=== PATIENT | male | born 1950 | race Caucasian/White ===

== ENCOUNTER → 2017-04-25 | Outpatient (CLI) | payer MEDICARE, BC ==
[~2017-04-25] MED LIST: HYDR-3111 PO; HYDR-3533 PO; HYDR-4107 PO; LOSA25TA PO; TESTOSTERONE GEL TOP; TIZA4 PO; VICT18IN SQ; VITA1000 PO; ZANA4CAP PO; testosterone cream TOPICAL
--- NOTE | 2017-04-25 09:55 | RADRPT ---
EXAM DATE/TIME: 04/25/2017 09:46 [facility] COMPARISON: No previous studies available for comparison. INDICATIONS : Pre op lumbar surgery. Evaluate for pneumothorax, pneumonia, or communicable diseases. MEDICAL HISTORY : None. SURGICAL HISTORY : None. ENCOUNTER: Initial ACUITY: 1 day PAIN SCORE: 0/10 LOCATION: Bilateral chest FINDINGS: PA and lateral views of the chest demonstrate the lungs to be symmetrically aerated without evidence of mass, infiltrate or effusion. The cardiomediastinal contours are unremarkable. Osseous structure s are intact. CONCLUSION: No acute disease. Jamshid Frausto MD on April 25, 2017 at 9:52 Board Certified Radiologist. This report was verified electronically.
[2017-04-25 10:01] LABS: AUTOMATED NEUTROPHIL # 4.5 TH/MM3 (1.8-7.7); BASOPHIL % 0.2 % (0.0-2.0); EOSINOPHIL # 0.1 TH/MM3 (0-0.4); EOSINOPHIL % 1.5 % (0.0-4.0); HEMATOCRIT 50.2 % (39.0-51.0); HEMOGLOBIN 16.9 GM/DL (13.0-17.0); LYMPH % 20.3 % (9.0-44.0); LYMPHOCYTE # 1.3 TH/MM3 (1.0-4.8); MEAN CELL VOLUME 91.1 FL (80.0-100.0); MEAN CORPUSCULAR HEMOGLOBIN 30.7 PG (27.0-34.0); MEAN CORPUSCULAR HGB CONC 33.7 % (32.0-36.0); MONO % 7.5 % (0.0-8.0); MONOCYTE # 0.5 TH/MM3 (0-0.9); NEUT % 70.5 % (16.0-70.0); PLATELET COUNT 181 TH/MM3 (150-450); RED BLOOD COUNT 5.51 MIL/MM3 (4.50-5.90); RED CELL DISTRIBUTION WIDTH 13.5 % (11.6-17.2); WHITE BLOOD COUNT 6.4 TH/MM3 (4.0-11.0)
[2017-04-25 10:25] LABS: ALBUMIN 4.1 GM/DL (3.4-5.0); AST (GOT) 23 U/L (15-37); BICARBONATE 29.5 MEQ/L (21.0-32.0); BLOOD UREA NITROGEN 22 MG/DL (7-18); CALCIUM 9.7 MG/DL (8.5-10.1); CHLORIDE 104 MEQ/L (98-107); CREATININE 1.58 MG/DL (0.60-1.30); GLOMERULAR FILTRATION RATE 44 ML/MIN (>89); GLUCOSE,FASTING 93 MG/DL (74-99); SODIUM (NA) 139 MEQ/L (136-145)
[2017-04-25 10:26] LABS: BILIRUBIN, URINE NEG (NEG); BLOOD, URINE LARGE (NEG); GLUCOSE,URINE NEG (NEG); KETONE, URINE NEG (NEG); MUCUS URINE FEW /lpf (OCC); NITRITE,URINE NEG (NEG); URIC ACID CRYSTALS, URINE FEW /hpf; URINE COLOR YELLOW (YELLW/STRAW); URINE LEUKOCYTE ESTERASE NEG (NEG)
[2017-04-25 10:27] LABS: ALT (GPT) 49 U/L (12-78)
[2017-04-25 10:28] LABS: ALKALINE PHOSPHATASE 59 U/L (45-117); TOTAL BILIRUBIN ADULT 0.4 MG/DL (0.2-1.0)
--- NOTE | 2017-04-25 12:23 | EKG ---
Date Performed: 04/25/2017 Time Performed: 09:20:56 PTAGE: 67 years EKG: Sinus rhythm . Possible inferior infarct - age undetermined Abnormal ECG PREVIOUS TRACING : 01/15/2013 11.15 Since the prior tracing, there has been no significant burciaga DOCTOR: Stephen Lucio Interpretating Date/Time 04/25/2017 12:22:30
== END ==
LOC: CPRE 08:58
PROVIDERS: ATTEND Neurological Surgery
DX: Z01.810 Encounter for preprocedural cardiovascular examination (principal); Z01.811 Encounter for preprocedural respiratory examination; Z01.812 Encounter for preprocedural laboratory examination; Z01.818 Encounter for other preprocedural examination; M51.36 Other intervertebral disc degeneration, lumbar region; R94.31 Abnormal electrocardiogram [ECG] [EKG]
CPT/HCPCS: 36415; 71046; 80053; 81001; 85025; 85610; 85730; 87640; 87641; 93005

== ENCOUNTER 2017-05-02 06:29 | Inpatient (IN) | payer MEDICARE, BC ==
[~2017-05-02] VITALS: Ht 180.3 cm; Wt 104.8 kg
[~2017-05-02 06:29] MED LIST changes: -HYDR-3533 PO; -HYDR-4107 PO; -TESTOSTERONE GEL TOP; -TIZA4 PO; -VICT18IN SQ; -testosterone cream TOPICAL
[2017-05-02] MEDS ORDERED: VANCOMYCIN HCL 1000 MG VIAL ONE (07:01)
[2017-05-02] MEDS ORDERED: THROMBIN (TOPICAL) 5,000 UNIT VIAL ONE (07:02)
[2017-05-02] MEDS ORDERED: BUPIVACAINE/EPINEPHRINE 0.5% PF 30 ML VIAL ONE (07:02)
[2017-05-02] MEDS ORDERED: ceFAZolin 2 GM PREMIX 50 ML ONE (07:02)
[2017-05-02] MEDS ORDERED: GELFOAM SIZE 100 ONE (07:02)
[2017-05-02] MEDS ORDERED: GENTAMICIN SULFATE 80 MG/2 ML VIAL ONE (07:03)
[2017-05-02] MEDS ORDERED: VANCOMYCIN 1 GM/200 ML INJ 200 ML IV ONE (07:27)
[2017-05-02] MEDS ORDERED: testosterone cream TOPICAL (07:27)
[2017-05-02] MEDS ORDERED: VICT18IN SQ (07:27)
[2017-05-02] MEDS: CHLORHEXIDINE GLUCONATE 2 % 1 PACK (2 CLOTHS) TOPICAL SCH (07:30)
[2017-05-02] MEDS ORDERED: POVIDONE IODINE 5% (ANTISEPSIS KIT) 4 APPLICATIONS EACH NARE PRN (07:30)
[2017-05-02] MEDS ORDERED: LACTATED RINGER'S 1000 ML IV PRN (07:30)
[2017-05-02] MEDS ORDERED: VANCOMYCIN 1000 MG/NS 250 ML ON-CALL IV SCH ×2 (07:30)
[2017-05-02] MEDS ORDERED: SODIUM CHLORID 0.9% 500 ML IV PRN (07:30)
[2017-05-02] MEDS ORDERED: CHLORHEXIDINE GLUCONATE 2 % 1 PACK (2 CLOTHS) TOPICAL PRN (07:30)
[2017-05-02] MEDS ORDERED: METOPROLOL TARTRATE 25 MG TAB PO PRN (07:30)
[2017-05-02] MEDS ORDERED: VANCOMYCIN 1 GM/200 ML PREMIX ON-CALL IV SCH (08:00)
[2017-05-02] MEDS ORDERED: ACETAMINOPHEN 325 MG TAB PO PRN (09:45)
[2017-05-02] MEDS ORDERED: NALOXONE HCL 0.4 MG/ML AMP IV PUSH PRN (09:45)
[2017-05-02] MEDS ORDERED: diphenhydrAMINE HCL 50 MG/ML VIAL IV PUSH PRN (09:45)
[2017-05-02] MEDS ORDERED: MORPHINE SULFATE 4 MG/ML INJ IV PUSH PRN (09:45)
[2017-05-02] MEDS ORDERED: ceFAZolin 2 GM PREMIX 50 ML IV ONE (10:49)
[2017-05-02] MEDS ORDERED: PROPOFOL 500 MG/50 ML INJ 150 ML ONE (11:08)
[2017-05-02] MEDS ORDERED: ARTIFICIAL TEARS OPTH OINT 3.5 APPLIC/3.5 GM TUBO ONE (11:08)
[2017-05-02] MEDS ORDERED: HYDROmorphone HCL PF 2 MG/ML VIAL ONE ×2 (11:08→14:09)
[2017-05-02] MEDS ORDERED: MORPHINE SULFATE 2 MG/ML INJ IV PUSH PRN (12:00)
--- NOTE | 2017-05-02 13:16 | PD.OP ---
Operative Report Date of Surgery: May 02, 2017 Preoperative Diagnosis: Lumbar degenerative disk disease Postoperative Diagnosis: Lumbar degenerative disk disease Procedure: L4-L5 minimally invasive lumbar laminectomy, interbody arthrodhesis using PEEK cage and autologous bone graft, L4-L5 instrumental fixation using transpedicular screws and rods, L4-L5 posterolateral fusion using autologous bone graft and demineralized bone matrix. Microsurgical dissection Anesthesia: general Surgeon: Laurent Coles Ticker Installer(s): Julieta Rivera Operation and Findings: INDICATIONS FOR THE SURGICAL PROCEDURE Mr. Prince is a 67 year-old male who presented with intractable mechanical back pain and ary evidence of lower extremity L5 radiculopathy. He was found to have severe degenerative disk disease with loss of disk height and secondary stenosis. He failed maximum nonoperative treatment. A surgical decompression and arthrodhesis were indicated as a last resort. The step-by- step details of the procedure, indications, alternatives, risks and potential complications were fully discussed with the patient. The patient fully understood. All the questions were answered. No guarantees were given. The patient voiced requesting the procedure and provided informed consents. The patient was offered the alternative of delaying the procedure and continuing with nonsurgical management. DETAILS OF THE SURGICAL PROCEDURE Prior to the procedure, the surgical incision was marked in the preoperative surgical holding room, and any questions were answered. Placement of electrodes for intraoperative neurophysiological monitoring was completed. The patient was taken to the operative room, and following induction of general anesthesia, endotracheal intubation was performed. A Canela catheter, bilateral SHABBIR hose and sequential compression devices were placed and kept throughout the procedure. The patient was positioned prone, over a Suresh table over a bolsters. All pressure in the preoperative surgical holding room points were carefully padded with eggcrate and gel mattress. The eyes were tapped shut after ointment was applied by the anesthesiologist to prevent corneal abrasion. A Saravanan hugger was placed over the expossed lower body to maintain control of the core body temperature. The electrophysiological team placed the needles and electrodes in their proper location and baseline SSEP's and EMG potentials were registered. The entrance to each pedicles was marked using a C arm. The lumbar region was prepped and draped in the usual sterile fashion. The surgical procedure was performed in several steps as follow: SURGICAL APPROACH Once the patient was positioned, a localizing cross-table lateral x-ray was performed with a C-arm. Two paramedian small incisions were outlined on the skin approximately 3cm from the midline. The skin incisions were made with a # 10 blade. Small bleeders were controlled with the cautery. The dissection was then carried out into deper planes and through the thoracolumbar fascia with a Bovie. The intermuscular septum was identified and the muscles were blunted dissected along the septum. The facets and transverse process of L4 and L5 were exposed and the proper anatomical landmarks were identidied. A microsurgical self-retaining retractor was placed on the incision, and a localizing lateralizing cross-table x-ray was performed with an instrument underneath a lamina of L4. INSTRUMENTAL FIXATION At this point in the procedure, placement of bilateral transpedicular screws was necessary for stabilization of the spine. Initially, the entry point for the screw was selected anatomically at the junction of the facet, with the transverse process, and the pars interarticularis at L4 and L5. This was started with a Giamshetti needle followed by the use of a locke wire. A tap was used to create the threads for the screws. Finally bilateral transpedicular screws were carefully placed bilaterally at L4, and L5 under fluoroscopic visualization. An appropriate purchase was achieved with all screws. The position of each screw was assessed anatomically with an AP, lateral , oblique Xrays. An intraoperative scan view of the spine was then performed using the iso-centric c-arm. Each screw was then assessed electrophysiologically stimulating each screw with a nerve stimulator. SURGICAL DECOMPRESSION At this point of the procedure the operative microscope was draped in the usual sterile fashion and brought to the field. The rest of the surgical procedure was performed using microdissection technique with the exception of the closure. Under the operating microscope, a decompressive laminectomy was carried out at L4-L5 as follow: The laminae, base of the spinous processes and facets were carefully drilled exposing the ligamentum flavum. The facets were abnormal with severe spondylolisthesis and gross mechanical instability. A large disk protusion was compressing the neural structures and exiting nerve roots. A near complete facetectomy was necessary resulting in further mechanical instability. The ligamentum flavum appeared hypertrophic, resulting on mass effect on the dorsal surface of the neural structures. The superior free border of the ligamentum flavum was elevated with a ligament dissector and the ligamentum flavum was removed with a 3 and 4 mm Kerrison forceps. The ligament was very adherent to the dural sac and during the dissection, and extreme care was taken during the dissection. The exiting nerve roots were identified, and a wide foraminotomy was performed with a Kerrison in their trajectory towards the neural foramen. Epidural veins located laterally to the dural sac were coagulated with the bipolar cautery, and then incised using microscissors. Gentle medial retraction of the dural sac allowed me to expose the disc space for the discectomy. Upon completion of the discectomy, an excellent decompression of the neural structures was achieved. Increased motion was noted consistent with mechanical instability. INTERBODY ARTHRODHESIS In order to correct the narrowing of the disk space and maintain distraction of the space, and to achieve a solid interbody fusion, it was necessary the insertion of an interbody device into the disk space. Otherwise, the disk space would collapse, compromising the result of the surgical procedure. At this point of the procedure, the annulus fibrosus of the disk was carefully coagulated with a bipolar cautery and incised using an 11 bladed knife. Then, a microdiscectomy was carried out in a standard fashion using a combination of straight and up-biting pituitary forceps. A reverse angle curette was applied underneath the posterior longitudinal ligament, and used to push the disk fragments into the disk space, so they can be safely removed with a pituitary forceps. Once the discectomy was completed, it was necessary to decorticate the endplates, in order to eliminate the cartilaginous endplate and to expose healthy bone appropriate to perform the interbody fusion. The endplates at L4- L5 were then thoroughly decorticated using increasing size bone maranda and ring curets, eliminating the cartilaginous fragments from both, the superior and inferior endplates. A disk space distractor was applied to the pedicle screws and gentle distraction was applied. This maneuver was assisted by the use of a disk distractor. Increased motility was noted at the disk, which was consistent with instability due to facet arthropathy. Once a thorough preparation of the disk space was achieved, the disk space was irrigated with antibiotic solution, and the interbody fusion was performed by carefully impacting an expandable PPEK cage filled with autologous bone graft. The cage was cartefully expanded. A solid position of the cage with good purchase was achieved. The position of the cage was assessed anatomically with a probe and radiologically with the C-arm. POSTEROLATERAL FUSION The posterolateral fusion is a critical component to the procedure, to prevent future fatigue and failure of the instrumental fixation. Initially, the transverse processes of the vertebral bodies, lateral surface of the facets and the lateral gutters of the spine were carefully cleaned, eliminating all soft tissue and muscle attachments. The area was then irrigated with a large amount of antibiotic solution. Subsequently, the transverse processes, lateral surface of the facets, and lateral gutters of the spine were thoroughly decorticated using the TPS drill with a 5mm cutting adrianna, exposing cancellous bone, in preparation for the posterolateral fusion. The incision was again irrigated with antibiotic solution. Then, the posterolateral fusion was then performed by carefully packing the lateral gutters of the spine at L4-L5 with autologous bone combined with demineralized bone matrix. I packed as much bone as possible. COMPLETION OF THE INSTRUMENTATION AND CLOSURE The rods were brought to the field, applied to all the screws, and the screw caps were sequentially applied. Compression was performed between the pedicle screws, and final tightening of the screws was completed using a torque wrench. The incision was again thoroughly irrigated with several liters of antibiotic solution, and hemostasis secured with the bipolar cautery. A Valsalva Maneuver performed by the anesthesiologist failed to show any evidence of cerebrospinal fluid leak or bleeding. A 7 mm Suresh-Jiménez drain was left in the epidural space and externalized through a separate stab incision. The incision was then closed in planes. 0 Vicryl was used in an interrupted fashion to close the thoracolumbar fascia and the superficial fascia. The subcutaneous tissue was then approximated using 3-0 Vicryl in an interrupted fashion. Special care was taken to avoid space. The skin was then closed with 4-0 Vicryl in a running, subcuticular fashion. Dermabond was applied to the skin. Each plane of closure was irrigated with antibiotic solution. At the end of the procedure the sponge, needle and instrument counts were all correct. Estimated blood loss was 200 cc. No blood transfusion was given. The entire procedure was performed using continuous electrophysiological monitoring of the somatosensorial evoked potentials and EMG. The patient received prophylactic antibiotics. The patient was then extubated and transferred to the recovery room in stable condition. Laurent Coles MD May 02, 2017 13:16
[2017-05-02] MEDS ORDERED: RESP: ALBUTEROL CONC 2.5 MG/0.5 ML NEB ONE ×2 (13:28→13:31)
[2017-05-02] MEDS ORDERED: DO NOT ADM ANY ANTICOAGULANT DRUGS PRN (13:37)
[2017-05-02] MEDS ORDERED: MIDAZOLAM HCL 2 MG/2 ML VIAL ONE (13:51)
[2017-05-02] MEDS: NS + KCL 20 MEQ INJ 1,000 ML IV SCH ×2 (14:00→22:22)
[2017-05-02] MEDS: HYDROmorphone HCL PCA 6 MG/30 ML IV SCH ×2 (14:06→21:02)
--- NOTE | 2017-05-02 14:38 | RADRPT ---
EXAM DATE/TIME: 05/02/2017 09:25 [facility] COMPARISON: No previous studies available for comparison. INDICATIONS : Fusion L4,L5 with screw and sage placement., MEDICAL HISTORY : None. SURGICAL HISTORY : None. ENCOUNTER: Initial ACUITY: 1 day PAIN SCORE: Non-responsive. LOCATION: Lumbar spine. CONCLUSION: Fluoroscopic images during placement of screws and rods at L4-5. Intervertebral disc device also seen . Jamshid Frausto MD on May 02, 2017 at 14:35 Board Certified Radiologist. This report was verified electronically.
[2017-05-02] MEDS ORDERED: *ONDANSETRON 4 MG VIAL PERIprocedural Use ONLY ONE (14:56)
[2017-05-02] MEDS ORDERED: ONDANSETRON HCL 4 MG/2 ML VIAL IV PUSH ONE (15:30)
[2017-05-02] MEDS ORDERED: HYDROmorphone HCL PF 2 MG/ML VIAL IV ONE (15:30)
[2017-05-02] MEDS: RESP: ALBUTEROL 1.25 MG/3 ML NEB (SCH) NEB (16:00)
[2017-05-02] MEDS ORDERED: DEXTROSE 50% IN WATER 50 ML VIAL(D50) IV PUSH PRN (16:30)
[2017-05-02] MEDS ORDERED: GLUCAGON 1 MG/ML VIAL OTHER PRN (16:30)
[2017-05-02] MEDS: INSULIN NovoLIN REGULAR SUPPLEMENTAL SCALE SQ SCH ×2 (17:00→21:00)
[2017-05-02] MEDS: SODIUM CHLOR 0.9% 1000 ML INJ 1,000 ML IV SCH (17:43)
[2017-05-02] MEDS: PCA - TOTAL MG DILAUDID DELIVERED PER SHIFT SCH ×2 (17:48→22:00)
[2017-05-02] MEDS: ceFAZolin 2 GM PREMIX 50 ML IV SCH (17:48)
[2017-05-02 17:49] VITALS: BP 120/66; PULSE 108; RESP 16; TEMP 98.1; O2SAT 94
[2017-05-02 20:50] VITALS: BP 141/65; PULSE 108; RESP 17; TEMP 97.5; O2SAT 95
[2017-05-03] VITALS (10 sets, daily range): BP systolic 121–135; BP diastolic 58–77; PULSE 65–111; RESP 18–20; TEMP 97.5–99; O2SAT 93–97
[2017-05-03] MEDS: RESP: ALBUTEROL 1.25 MG/3 ML NEB (SCH) NEB ×6 (00:10→20:00)
[2017-05-03] MEDS: ceFAZolin 2 GM PREMIX 50 ML IV SCH ×2 (01:59→08:59)
[2017-05-03] MEDS: ONDANSETRON HCL 4 MG/2 ML VIAL IV PRN ×3 (02:00→15:44)
[2017-05-03 05:23] LABS: AUTOMATED NEUTROPHIL # 9.6 TH/MM3 (1.8-7.7); BASOPHIL % 0.1 % (0.0-2.0); HEMOGLOBIN 13.9 GM/DL (13.0-17.0); LYMPH % 4.8 % (9.0-44.0); LYMPHOCYTE # 0.5 TH/MM3 (1.0-4.8); MEAN CELL VOLUME 91.2 FL (80.0-100.0); MEAN CORPUSCULAR HEMOGLOBIN 30.8 PG (27.0-34.0); MEAN CORPUSCULAR HGB CONC 33.8 % (32.0-36.0); MEAN PLATELET VOLUME 8.3 FL (7.0-11.0); MONO % 6.9 % (0.0-8.0); MONOCYTE # 0.7 TH/MM3 (0-0.9); NEUT % 88.2 % (16.0-70.0); PLATELET COUNT 173 TH/MM3 (150-450); RED CELL DISTRIBUTION WIDTH 13.4 % (11.6-17.2); WHITE BLOOD COUNT 10.8 TH/MM3 (4.0-11.0)
[2017-05-03 05:43] LABS: CALCIUM 7.6 MG/DL (8.5-10.1); CREATININE 1.77 MG/DL (0.60-1.30)
[2017-05-03] MEDS: PCA - TOTAL MG DILAUDID DELIVERED PER SHIFT SCH ×3 (06:00→22:00)
[2017-05-03] MEDS: ACETAMINOPHEN/HYDROcodone 325 MG/5 MG TAB PO PRN ×4 (07:07→21:03)
[2017-05-03] MEDS: HYDROmorphone HCL PCA 6 MG/30 ML IV SCH ×2 (07:55→14:10)
[2017-05-03] MEDS: PANTOPRAZOLE SODIUM 40 MG VIAL IVP SCH (07:57)
[2017-05-03] MEDS: CHOLECALCIFEROL (VIT D3) 1000 UNIT TAB PO SCH (08:01)
[2017-05-03] MEDS: INSULIN NovoLIN REGULAR SUPPLEMENTAL SCALE SQ SCH ×4 (08:01→21:00)
[2017-05-03] MEDS: CHLORHEXIDINE GLUCONATE 2 % 1 PACK (2 CLOTHS) TOPICAL SCH (08:01)
[2017-05-03] MEDS: SODIUM CHLOR 0.9% 1000 ML INJ 1,000 ML IV SCH ×3 (08:14→21:02)
[2017-05-03] MEDS: NS + KCL 20 MEQ INJ 1,000 ML IV SCH (08:58)
[2017-05-03] MEDS ORDERED: TESTOSTERONE TOPICAL SCH (09:00)
[2017-05-03] MEDS ORDERED: LOSARTAN 25 MG TAB PO SCH (09:00)
[2017-05-03] MEDS ORDERED: VICTOZA 1.2 MG SQ SCH (09:00)
--- NOTE | 2017-05-03 09:11 | HHI.PR ---
Subjective Remarks Patient seen and examined for a new consult on May 03 Mistaken rhonchi entry, consult will be dictated in a separate consult contemplate Objective Vitals Vital Signs Date Time Temp Pulse Resp B/P (MAP) Pulse Ox O2 Delivery O2 Flow Rate FiO2 05/03/17 07:55 16 05/03/17 07:34 97 Nasal Cannula 05/03/17 06:00 14 05/03/17 04:43 98.9 108 18 127/64 (85) 97 05/03/17 00:40 97.7 109 18 131/61 (84) 97 05/03/17 00:12 96 Nasal Cannula 2.50 05/02/17 22:00 14 05/02/17 21:02 14 05/02/17 20:50 97.5 108 17 141/65 (90) 95 05/02/17 17:49 98.1 108 16 120/66 (84) 94 05/02/17 17:48 16 05/02/17 17:00 97.8 100 16 122/74 (90) 95 Nasal Cannula 3 05/02/17 16:00 101 16 124/70 (88) 94 Nasal Cannula 3 05/02/17 15:00 103 15 134/74 (94) 93 Nasal Cannula 3 05/02/17 14:45 104 15 127/67 (87) 93 Nasal Cannula 3 05/02/17 14:36 15 05/02/17 14:30 106 15 133/65 (87) 92 Nasal Cannula 3 05/02/17 14:15 106 15 139/72 (94) 92 Nasal Cannula 3 05/02/17 14:06 15 05/02/17 14:00 109 15 140/75 (96) 97 Nasal Cannula 4 05/02/17 13:45 109 15 138/79 (98) 96 Nasal Cannula 4 05/02/17 13:37 98.2 106 18 146/77 (100) 95 Nasal Cannula 4 I/O 05/02/17 05/02/17 05/02/17 05/03/17 05/03/17 05/03/17 07:00 15:00 23:00 07:00 15:00 23:00 Intake Total 2000 ml 300 ml 360 ml Output Total 650 ml 310 ml 1050 ml Balance 1350 ml -10 ml -690 ml Intake Oral 360 ml IV Total 300 ml Other 2000 ml Output Urine Total 450 ml 250 ml 1000 ml Drainage Total 60 ml 50 ml Estimated Blood Loss 200 ml Result Diagram: 05/03/17 0415 05/03/17 0415 Rahul Jacques MD May 03, 2017 09:11
[2017-05-03] MEDS ORDERED: cloNIDine HCL 0.1 MG TAB PO PRN (09:15)
--- NOTE | 2017-05-03 13:01 | HHI.NSPN ---
Note Status Status: Progress Note Interval History Interval History Mr. Prince underwent a L4-L5 minimally invasive lumbar laminectomy, interbody arthrodesis using PEEK cage and autologous bone graft, L4-L5 instrumental fixation using transpedicular screws and rods, L4-L5 posterolateral fusion using autologous bone graft and demineralized bone matrix, microsurgical dissection on May 02, 2017 for lumbar degenerative disk disease 05/03: Mr. Prince currently doing well, he had nausea earlier with vomiting. pain controlled on INSTRUMENT MECHANIC. Labs, Micro, & Vital Signs Results Date Time Temp Pulse Resp B/P (MAP) Pulse Ox O2 Delivery O2 Flow Rate FiO2 05/03/17 08:00 97.5 107 18 121/73 (89) 95 05/03/17 07:55 16 05/03/17 07:34 97 Nasal Cannula 05/03/17 06:00 14 05/03/17 04:43 98.9 108 18 127/64 (85) 97 05/03/17 00:40 97.7 109 18 131/61 (84) 97 05/03/17 00:12 96 Nasal Cannula 2.50 05/02/17 22:00 14 05/02/17 21:02 14 05/02/17 20:50 97.5 108 17 141/65 (90) 95 05/02/17 17:49 98.1 108 16 120/66 (84) 94 05/02/17 17:48 16 05/02/17 17:00 97.8 100 16 122/74 (90) 95 Nasal Cannula 3 05/02/17 16:00 101 16 124/70 (88) 94 Nasal Cannula 3 05/02/17 15:00 103 15 134/74 (94) 93 Nasal Cannula 3 05/02/17 14:45 104 15 127/67 (87) 93 Nasal Cannula 3 05/02/17 14:36 15 05/02/17 14:30 106 15 133/65 (87) 92 Nasal Cannula 3 05/02/17 14:15 106 15 139/72 (94) 92 Nasal Cannula 3 05/02/17 14:06 15 05/02/17 14:00 109 15 140/75 (96) 97 Nasal Cannula 4 05/02/17 13:45 109 15 138/79 (98) 96 Nasal Cannula 4 05/02/17 13:37 98.2 106 18 146/77 (100) 95 Nasal Cannula 4 05/04/17 06:59 Intake Total 1440 ml Balance 1440 ml Constitutional Vital Signs Date Time Temp Pulse Resp B/P (MAP) Pulse Ox O2 Delivery O2 Flow Rate FiO2 05/03/17 08:00 97.5 107 18 121/73 (89) 95 05/03/17 07:55 16 05/03/17 07:34 97 Nasal Cannula 05/03/17 06:00 14 05/03/17 04:43 98.9 108 18 127/64 (85) 97 05/03/17 00:40 97.7 109 18 131/61 (84) 97 05/03/17 00:12 96 Nasal Cannula 2.50 05/02/17 22:00 14 05/02/17 21:02 14 05/02/17 20:50 97.5 108 17 141/65 (90) 95 05/02/17 17:49 98.1 108 16 120/66 (84) 94 05/02/17 17:48 16 05/02/17 17:00 97.8 100 16 122/74 (90) 95 Nasal Cannula 3 05/02/17 16:00 101 16 124/70 (88) 94 Nasal Cannula 3 05/02/17 15:00 103 15 134/74 (94) 93 Nasal Cannula 3 05/02/17 14:45 104 15 127/67 (87) 93 Nasal Cannula 3 05/02/17 14:36 15 05/02/17 14:30 106 15 133/65 (87) 92 Nasal Cannula 3 05/02/17 14:15 106 15 139/72 (94) 92 Nasal Cannula 3 05/02/17 14:06 15 05/02/17 14:00 109 15 140/75 (96) 97 Nasal Cannula 4 05/02/17 13:45 109 15 138/79 (98) 96 Nasal Cannula 4 05/02/17 13:37 98.2 106 18 146/77 (100) 95 Nasal Cannula 4 05/04/17 06:59 Intake Total 1440 ml Balance 1440 ml Physical Exam Mr. Prince is alert, awake and oriented to time, place and person. Speech is fluent. Cranial nerve examination: pupils to be equal, round and reactive to light. Extra-ocular movements are intact. Facial motor are normal and symmetrical. Neck is soft Muscle strength: moves major muscle groups of lower extremities. bilateral plantar flexion response. Resp: clear, no wheezing, nonlabored, on supplemental oxygen via [place] Medications Current Medications Current Medications Medications (Trade) Dose Ordered Sig/[place] Route PRN Reason Start Time Stop Time Status Last Admin Dose Admin Sodium Chloride 1,000 ml @ 30 mls/hr Q24H IV 05/02/17 07:30 Lactated Ringer's 1,000 ml @ 30 mls/hr Q24H PRN IV SEE LABEL COMMENTS 05/02/17 07:30 05/05/17 07:29 05/02/17 07:00 Sodium Chloride 500 ml @ 30 mls/hr [id number] PRN IV SEE LABEL COMMENTS 05/02/17 07:30 05/05/17 07:29 Metoprolol Tartrate (Lopressor) 25 mg DOCK CLERK PRN PO SEE LABEL COMMENTS 05/02/17 07:30 05/05/17 07:29 Povidone Iodine (Betadine 5% Antisepsis Kit) 1 applic DOCK CLERK PRN EACH NARE SEE LABEL COMMENTS 05/02/17 07:30 05/05/17 07:29 05/02/17 07:05 Chlorhexidine Gluconate (Chlorhexidine 2% Cloth) 3 pack DOCK CLERK PRN TOPICAL SEE LABEL COMMENTS 05/02/17 07:30 05/05/17 07:29 05/02/17 06:50 Chlorhexidine Gluconate (Chlorhexidine 2% Cloth) 1 pack DAILY TOPICAL 05/02/17 09:00 05/04/17 09:01 05/02/17 07:30 Vancomycin/Sodium Chloride 200 ml @ 200 mls/hr DOCK CLERK IV 05/02/17 08:00 05/05/17 07:59 Pantoprazole Sodium (Protonix Inj) 40 mg DAILY IVP 05/03/17 09:00 05/03/17 07:57 Morphine Sulfate (Morphine Inj) 2 mg Q2H PRN IV PUSH PAIN SCALE 1 TO 6 05/02/17 12:00 Morphine Sulfate (Morphine Inj) 4 mg Q2H PRN IV PUSH PAIN SCALE 7 TO 10 05/02/17 09:45 05/02/17 20:53 Acetaminophen (Tylenol) 650 mg Q4H PRN PO TEMPERATURE > 101.5 F 05/02/17 09:45 Naloxone HCl (Narcan Inj) 0.4 mg UNSCH PRN IV PUSH RESPIRATORY RATE LESS THAN 10 05/02/17 09:45 Diphenhydramine HCl (Benadryl Inj) 25 mg Q6H PRN IV PUSH ITCHING 05/02/17 09:45 Hydromorphone HCl (Dilaudid INSTRUMENT MECHANIC Inj) 6 mg UNSCH IV 05/02/17 11:45 05/03/17 07:55 INSTRUMENT MECHANIC Dosage Infused (Pha) 1 Q8HR .XX 05/02/17 14:00 05/03/17 06:00 Cholecalciferol (Vitamin D3) 1,000 units DAILY PO 05/03/17 09:00 05/03/17 08:01 Acetaminophen/ Hydrocodone Bitart ([place] 5-325 Mg) 1 tab Q4H PRN PO PAIN 1-10 05/02/17 09:45 05/03/17 11:36 Losartan Potassium (Cozaar) 12.5 mg DAILY PO 05/03/17 09:00 Future Hold 05/03/17 08:01 Tizanidine HCl (Zanaflex) 4 mg TID PRN PO MUSCLE SPASM 05/02/17 09:45 05/03/17 07:07 Patient Own Medication PT OWN MED: VICT... DAILY SQ 05/03/17 09:00 Future Hold Patient Own Medication PT OWN MED: TESTOSTERONE CREA... DAILY TOPICAL 05/03/17 09:00 Future Hold Albuterol Sulfate (Albuterol Neb) 1.25 mg Q4HR NEB NEB 05/02/17 16:00 05/03/17 07:33 Miscellaneous Information ALL NURSING DEPARTME... UNSCH PRN .XX SEE LABEL COMMENTS 05/02/17 13:37 05/03/17 13:36 Dextrose (D50w (Vial) Inj) 50 ml UNSCH PRN IV PUSH HYPOGLYCEMIA-SEE COMMENTS 05/02/17 16:30 Glucagon (Glucagon Inj) 1 mg UNSCH PRN OTHER HYPOGLYCEMIA-SEE COMMENTS 05/02/17 16:30 Insulin Human Regular (NovoLIN R SUPPLEMENTAL SCALE) 1 ACHS SLIDING SCALE SQ 05/02/17 17:00 Ondansetron HCl (Zofran Inj) 4 mg Q6H PRN IV NAUSEA OR VOMITING 05/03/17 02:00 05/03/17 07:57 Clonidine (Catapres) 0.1 mg Q6H PRN PO bp>160/90 05/03/17 09:15 Sodium Chloride 1,000 ml @ 100 mls/hr Q10H IV 05/03/17 10:47 05/03/17 11:34 Medical Decision Making MDM Remarks 67 y/o male s/p L4-L5 minimally invasive lumbar laminectomy, interbody arthrodesis using PEEK cage and autologous bone graft, L4-L5 instrumental fixation using transpedicular screws and rods, L4-L5 posterolateral fusion using autologous bone graft and demineralized bone matrix microsurgical dissection 05/02/17 Plan Plan Remarks cont current pain control with INSTRUMENT MECHANIC SCDs and TEDs for dvt prophylaxis dc aguillon mobilize with PT, OOB with LSO brace medical assistance much appreciated Henna Amaro May 03, 2017 13:01
[2017-05-04] VITALS: BP 120/56; PULSE 100; RESP 20; TEMP 97.6; O2SAT 98
[2017-05-04] MEDS: HYDROmorphone HCL PCA 6 MG/30 ML IV SCH (00:17)
[2017-05-04 00:53] VITALS: O2SAT 93
[2017-05-04 04:00] VITALS: BP 127/72; PULSE 109; RESP 20; TEMP 98.5; O2SAT 91
[2017-05-04] MEDS: RESP: ALBUTEROL 1.25 MG/3 ML NEB (SCH) NEB ×4 (04:00→12:00)
[2017-05-04] MEDS: PCA - TOTAL MG DILAUDID DELIVERED PER SHIFT SCH ×2 (05:57→10:53)
[2017-05-04] MEDS: SODIUM CHLOR 0.9% 1000 ML INJ 1,000 ML IV SCH ×2 (07:30→09:37)
[2017-05-04] MEDS: INSULIN NovoLIN REGULAR SUPPLEMENTAL SCALE SQ SCH ×2 (07:39→12:00)
[2017-05-04] MEDS ORDERED: HYDR-3516 PO (08:56)
[2017-05-04] MEDS: CHLORHEXIDINE GLUCONATE 2 % 1 PACK (2 CLOTHS) TOPICAL SCH (09:00)
[2017-05-04] MEDS ORDERED: WALKER WHEELS/F1 MIS (09:01)
[2017-05-04 09:33] VITALS: BP 133/77; PULSE 117; RESP 20; TEMP 98.6; O2SAT 93
[2017-05-04] MEDS: PANTOPRAZOLE SODIUM 40 MG VIAL IVP SCH (09:36)
[2017-05-04] MEDS: CHOLECALCIFEROL (VIT D3) 1000 UNIT TAB PO SCH (09:36)
--- NOTE | 2017-05-04 09:57 | HHI.NSPN ---
Note Status Status: Progress Note Interval History Interval History Mr. Prince underwent a L4-L5 minimally invasive lumbar laminectomy, interbody arthrodesis using PEEK cage and autologous bone graft, L4-L5 instrumental fixation using transpedicular screws and rods, L4-L5 posterolateral fusion using autologous bone graft and demineralized bone matrix, microsurgical dissection on May 02, 2017 for lumbar degenerative disk disease 05/03: Mr. Prince currently doing well, he had nausea earlier with vomiting. pain controlled on WARP DRAWER. 05/04. He is feeling well. Ambulating with a walker, Pain is well controlled Labs, Micro, & Vital Signs Results Date Time Temp Pulse Resp B/P (MAP) Pulse Ox O2 Delivery O2 Flow Rate FiO2 05/04/17 09:33 98.6 117 20 133/77 (95) 93 05/04/17 05:57 18 05/04/17 04:00 98.5 109 20 127/72 (90) 91 05/04/17 00:53 93 05/04/17 00:17 18 05/04/17 00:00 97.6 100 20 120/56 (77) 98 05/03/17 22:00 18 05/03/17 20:00 98.5 111 20 124/58 (80) 96 05/03/17 18:37 93 05/03/17 16:00 98.5 65 18 133/71 (91) 05/03/17 14:10 16 05/03/17 13:42 16 05/03/17 12:00 99.0 102 18 135/77 (96) 93 Constitutional Vital Signs Date Time Temp Pulse Resp B/P (MAP) Pulse Ox O2 Delivery O2 Flow Rate FiO2 05/04/17 09:33 98.6 117 20 133/77 (95) 93 05/04/17 05:57 18 05/04/17 04:00 98.5 109 20 127/72 (90) 91 05/04/17 00:53 93 05/04/17 00:17 18 05/04/17 00:00 97.6 100 20 120/56 (77) 98 05/03/17 22:00 18 05/03/17 20:00 98.5 111 20 124/58 (80) 96 05/03/17 18:37 93 05/03/17 16:00 98.5 65 18 133/71 (91) 05/03/17 14:10 16 05/03/17 13:42 16 05/03/17 12:00 99.0 102 18 135/77 (96) 93 Physical Exam Mr. Prince is alert, awake and oriented to time, place and person. Speech is fluent. Cranial nerve examination: pupils to be equal, round and reactive to light. Extra-ocular movements are intact. Facial motor are normal and symmetrical. Neck is soft Muscle strength: moves major muscle groups of lower extremities. bilateral plantar flexion response. Resp: clear, no wheezing, nonlabored, on supplemental oxygen via NC Medications Current Medications Current Medications Vancomycin HCl (Vancomycin Inj) 1,000 mg STK-MED ONCE .ROUTE Last administered on 05/02/17at 10:30; Start 05/02/17 at 07:01; Stop 05/02/17 at 07:02; Status DC Thrombin (Thrombin Top Soln) 10,000 units STK-MED ONCE .ROUTE Last administered on 05/02/17at 10:30; Start 05/02/17 at 07:02; Stop 05/02/17 at 07:03 ; Status DC Cefazolin Sodium/ Dextrose 50 ml @ As Directed STK-MED ONCE .ROUTE Last administered on 05/02/17at 12:50; Start 05/02/17 at 07:02; Stop 05/02/17 at 07:03 ; Status DC Bupivacaine HCl/ Epinephrine Bitart (Sensorcaine-Epinephrine Pf 0.5% Inj) 30 ml STK-MED ONCE .ROUTE Last administered on 05/02/17at 10:30; Start 05/02/17 at 07: 02; Stop 05/02/17 at 07:03; Status DC Gelatin (Gelfoam 100 Top) 1 foam STK-MED ONCE .ROUTE Last administered on at 10:30; Start 05/02/17 at 07:02; Stop 05/02/17 at 07:03; Status DC Gentamicin Sulfate (Gentamicin Inj) 240 mg STK-MED ONCE .ROUTE Last administered on 05/02/17at 10:30; Start 05/02/17 at 07:03; Stop 05/02/17 at 07:04 ; Status DC Vancomycin HCl 1000 mg/Sodium Chloride 250 ml @ 250 mls/hr ICHTHYOLOGY TEACHER IV ; Start 05/02/17 at 07:30; Stop 05/05/17 at 07:29; Status Cancel Sodium Chloride 1,000 ml @ 30 mls/hr Q24H IV ; Start 05/02/17 at 07:30 Vancomycin/Sodium Chloride 200 ml @ As Directed STK-MED ONCE IV ; Start at 07:27; Stop 05/02/17 at 07:28; Status DC Lactated Ringer's 1,000 ml @ 30 mls/hr Q24H PRN IV SEE LABEL COMMENTS Last administered on 05/02/17at 07:00; Start 05/02/17 at 07:30; Stop 05/05/17 at 07:29 Sodium Chloride 500 ml @ 30 mls/hr [id number] PRN IV SEE LABEL COMMENTS; Start at 07:30; Stop 05/05/17 at 07:29 Metoprolol Tartrate (Lopressor) 25 mg ICHTHYOLOGY TEACHER PRN PO SEE LABEL COMMENTS; Start 05/02/17 at 07:30; Stop 05/05/17 at 07:29 Povidone Iodine (Betadine 5% Antisepsis Kit) 1 applic ICHTHYOLOGY TEACHER PRN EACH NARE SEE LABEL COMMENTS Last administered on 05/02/17at 07:05; Start 05/02/17 at 07:30 ; Stop 05/05/17 at 07:29 Chlorhexidine Gluconate (Chlorhexidine 2% Cloth) 3 pack ICHTHYOLOGY TEACHER PRN TOPICAL SEE LABEL COMMENTS Last administered on 05/02/17at 06:50; Start 05/02/17 at 07:30 ; Stop 05/05/17 at 07:29 Chlorhexidine Gluconate (Chlorhexidine 2% Cloth) 1 pack DAILY TOPICAL Last administered on 05/02/17at 07:30; Start 05/02/17 at 09:00; Stop 05/04/17 at 09:01 ; Status DC Vancomycin/Sodium Chloride 200 ml @ 200 mls/hr ICHTHYOLOGY TEACHER IV ; Start 05/02/17 at 08:00; Stop 05/05/17 at 07:59 Potassium Chloride/Sodium Chloride 1,000 ml @ 100 mls/hr Q10H IV Last administered on 05/03/17 08:58; Start 05/02/17 at 12:00; Stop 05/03/17 at 10:48; Status DC Cefazolin Sodium/ Dextrose 50 ml @ 100 mls/hr Q8H IV Last administered on 08:59; Start 05/02/17 at 18:00; Stop 05/03/17 at 10:29; Status DC Pantoprazole Sodium (Protonix Inj) 40 mg DAILY IVP Last administered on 09:36; Start 05/03/17 at 09:00 Morphine Sulfate (Morphine Inj) 2 mg Q2H PRN IV PUSH PAIN SCALE 1 TO 6; Start 05/02/17 at 12:00 Morphine Sulfate (Morphine Inj) 4 mg Q2H PRN IV PUSH PAIN SCALE 7 TO 10 Last administered on 05/02/17at 20:53; Start 05/02/17 at 09:45 Acetaminophen (Tylenol) 650 mg Q4H PRN PO TEMPERATURE > 101.5 F; Start at 09:45 Naloxone HCl (Narcan Inj) 0.4 mg UNSCH PRN IV PUSH RESPIRATORY RATE LESS THAN 10; Start 05/02/17 at 09:45 Diphenhydramine HCl (Benadryl Inj) 25 mg Q6H PRN IV PUSH ITCHING; Start at 09:45 Hydromorphone HCl (Dilaudid WARP DRAWER Inj) 6 mg UNSCH IV Last administered on at 00:17; Start 05/02/17 at 11:45 WARP DRAWER Dosage Infused (Pha) 1 Q8HR .XX Last administered on 05/04/17 05:57; Start 05/02/17 at 14:00 Cholecalciferol (Vitamin D3) 1,000 units DAILY PO Last administered on 09:36; Start 05/03/17 at 09:00 Acetaminophen/ Hydrocodone Bitart ([place] 5-325 Mg) 1 tab Q4H PRN PO PAIN 1-10 Last administered on 05/03/17 21:03; Start 05/02/17 at 09:45 Losartan Potassium (Cozaar) 12.5 mg DAILY PO Last administered on 05/03/17 08: 01; Start 05/03/17 at 09:00; Status Future Hold Tizanidine HCl (Zanaflex) 4 mg TID PRN PO MUSCLE SPASM Last administered on 05/03at 21:03; Start 05/02/17 at 09:45 Patient Own Medication PT OWN MED: VICT... DAILY SQ ; Start 05/03/17 at 09:00; Status Future Hold Patient Own Medication PT OWN MED: TESTOSTERONE CREA... DAILY TOPICAL ; Start at 09:00; Status Future Hold Cefazolin Sodium/ Dextrose 50 ml @ 100 mls/hr ONCE ONCE IV Last administered on 05/02/17at 10:50; Start 05/02/17 at 10:49; Stop 05/02/17 at 11:18; Status DC Propofol 150 ml @ As Directed STK-MED ONCE .ROUTE ; Start 05/02/17 at 11:08; Stop 05/02/17 at 11:09; Status DC Hydromorphone HCl (Dilaudid Pf Inj) 2 mg STK-MED ONCE .ROUTE ; Start 05/02/17 at 11:08; Stop 05/02/17 at 11:09; Status DC Artificial Tears (Lacrilube Opht Oint) 3.5 applic STK-MED ONCE .ROUTE ; Start at 11:08; Stop 05/02/17 at 11:09; Status DC Albuterol Sulfate (Albuterol Neb) 1.25 mg Q4HR NEB NEB Last administered on 05/03/17at 15:56; Start 05/02/17 at 16:00 Albuterol Sulfate (Albuterol Concentrated Neb) 2.5 mg STK-MED ONCE .ROUTE ; Start 05/02/17 at 13:28; Stop 05/02/17 at 13:29; Status DC Albuterol Sulfate (Albuterol Concentrated Neb) 2.5 mg STK-MED ONCE .ROUTE ; Start 05/02/17 at 13:31; Stop 05/02/17 at 13:32; Status DC Fentanyl Citrate (fentaNYL INJ) 300 mcg STK-MED ONCE .ROUTE ; Start 05/02/17 at 13:50; Stop 05/02/17 at 13:51; Status DC Fentanyl Citrate (fentaNYL INJ) 100 mcg STK-MED ONCE .ROUTE ; Start 05/02/17 at 13:51; Stop 05/02/17 at 13:52; Status DC Midazolam HCl (Versed Inj) 4 mg STK-MED ONCE .ROUTE ; Start 05/02/17 at 13:51; Stop 05/02/17 at 13:52; Status DC Hydromorphone HCl (Dilaudid Pf Inj) 2 mg STK-MED ONCE .ROUTE Last administered on 05/02/17at 14:09; Start 05/02/17 at 14:09; Stop 05/02/17 at 14:10; Status DC Miscellaneous Information ALL NURSING DEPARTME... UNSCH PRN .XX SEE LABEL COMMENTS; Start 05/02/17 at 13:37; Stop 05/03/17 at 13:36; Status DC Ondansetron HCl (*ZOFRAN INJ PERIprocedural ONLY) 4 mg STK-MED ONCE .ROUTE Last administered on 05/02/17at 14:56; Start 05/02/17 at 14:56; Stop 05/02/17 at 14:57; Status DC Hydromorphone HCl (Dilaudid Pf Inj) 0.5 mg ONCE ONCE IV ; Start 05/02/17 at 15: 30; Stop 05/02/17 at 15:31; Status DC Ondansetron HCl (Zofran Inj) 4 mg ONCE ONCE IV PUSH ; Start 05/02/17 at 15:30; Stop 05/02/17 at 15:31; Status DC Dextrose (D50w (Vial) Inj) 50 ml UNSCH PRN IV PUSH HYPOGLYCEMIA-SEE COMMENTS; Start 05/02/17 at 16:30 Glucagon (Glucagon Inj) 1 mg UNSCH PRN OTHER HYPOGLYCEMIA-SEE COMMENTS; Start 05/02/17 at 16:30 Insulin Human Regular (NovoLIN R SUPPLEMENTAL SCALE) 1 ACHS SLIDING SCALE SQ ; Start 05/02/17 at 17:00 Ondansetron HCl (Zofran Inj) 4 mg Q6H PRN IV NAUSEA OR VOMITING Last administered on 05/03/17at 15:44; Start 05/03/17 at 02:00 Clonidine (Catapres) 0.1 mg Q6H PRN PO bp>160/90; Start 05/03/17 at 09:15 Sodium Chloride 1,000 ml @ 100 mls/hr Q10H IV Last administered on 05/04/17at 09 :37; Start 2/1/18 at 10:47 Plan Plan Remarks 67 y/o male s/p L4-L5 minimally invasive lumbar laminectomy, interbody arthrodesis using PEEK cage and autologous bone graft, L4-L5 instrumental fixation using transpedicular screws and rods, L4-L5 posterolateral fusion using autologous bone graft and demineralized bone matrix microsurgical dissection 05/02/17 Attending Statement cont current supportive care Will stoop WARP DRAWER today SCDs and TEDs for dvt prophylaxis LSO brace Discharge planing Laurent Coles MD May 04, 2017 09:57
[2017-05-04] MEDS: ACETAMINOPHEN/HYDROcodone 325 MG/5 MG TAB PO PRN (10:28)
[2017-05-04 11:25] VITALS: BP_SYST 154; BP_SYST 162; BP_DIAS 70; BP_DIAS 71; PULSE 108; RESP 20; TEMP 99.2; O2SAT 92
--- NOTE | 2017-05-04 14:14 | HHI.PR ---
Subjective Remarks Patient walking with a walker, doing much better today Afebrile blood sugar control he stable medically to be discharged once okay with neurosurgeon Objective Vitals Vital Signs Date Time Temp Pulse Resp B/P (MAP) Pulse Ox O2 Delivery O2 Flow Rate FiO2 05/04/17 11:25 99.2 108 20 154/70 (98) 92 162/71 (101) 05/04/17 10:53 20 05/04/17 09:33 98.6 117 20 133/77 (95) 93 05/04/17 05:57 18 05/04/17 04:00 98.5 109 20 127/72 (90) 91 05/04/17 00:53 93 05/04/17 00:17 18 05/04/17 00:00 97.6 100 20 120/56 (77) 98 05/03/17 22:00 18 05/03/17 20:00 98.5 111 20 124/58 (80) 96 05/03/17 18:37 93 05/03/17 16:00 98.5 65 18 133/71 (91) I/O 05/03/17 05/03/17 05/03/17 05/04/17 05/04/17 05/04/17 07:00 15:00 23:00 07:00 15:00 23:00 Intake Total 360 ml 1440 ml Output Total 1050 ml 902 ml 170 ml 10 ml Balance -690 ml 1440 ml -902 ml -170 ml -10 ml Intake Oral 360 ml IV Total 1440 ml Output Urine Total 1000 ml 875 ml 150 ml Drainage Total 50 ml 27 ml 20 ml 10 ml # Voids 2 Result Diagram: 05/03/17 0415 05/03/17 0415 Objective Remarks GENERAL: This is a well-nourished, well-developed patient, in no apparent distress. SKIN: No rashes, warm and dry HEAD: Atraumatic. Normocephalic. EYES: Pupils equal round and reactive. Extraocular motions intact. No scleral icterus. ENT: Nose without bleeding, or drainage, Airway patent. NECK: Trachea midline. Supple CARDIOVASCULAR: Regular rate and rhythm without murmurs, gallops, or rubs. RESPIRATORY: Fair air entry bilaterally. No wheezes, rales, or rhonchi. GASTROINTESTINAL: Abdomen soft, non-tender, nondistended. Positive bowel sounds MUSCULOSKELETAL: Extremities without clubbing, cyanosis, or edema. Pedal pulses appreciated NEUROLOGICAL: Awake and alert. Moves all extremity. Normal speech.no focal neurological deficit A/P Assessment and Plan 67 y/o male s/p L4-L5 minimally invasive lumbar laminectomy, interbody arthrodesis using PEEK cage and autologous bone graft, L4-L5 instrumental fixation using transpedicular screws and rods, L4-L5 posterolateral fusion using autologous bone graft and demineralized bone matrix microsurgical dissection 05/02/17. cont current supportive care per neurosurgery Pains management INTERNAL MEDICINE PHYSICIAN ASSISTANT SCDs and TEDs for dvt prophylaxis LSO brace Borderline diabetes mellitus>> resuming Victoza at discharge, Accu-Chek with insulin sliding scale CHARLES versus CKD with history of kidney stones: Creatinine 1.75, monitor BMP Hypertension>> continue losartan hold hydrochlorothiazide perioperative DVT prophylaxis per neurosurgery Rahul Jacques MD May 04, 2017 14:14
--- NOTE | 2017-05-04 18:46 | PD.CONS ---
[facility] Service [facility] Hospitalists Consult Requested By Neurosurgery Reason for Consult Medical management Primary Care Physician Basilio Nogueira MD Diagnoses: History of Present Illness This is a late entry dictation for consult for patient seen and examined on May 03 67 years old male admitted on the neurosurgery service for back surgery and hospitalist consulted for medical management, patient has a history of borderline diabetes mellitus is on victoza due to this and also for a purpose of weight loss, he has a history of hypertension and he has a history of kidney stone on a basis of chronic kidney disease. Currently patient is postop doing well, pain is tolerable, he denied chest pain short of breath abdominal pain diarrhea or constipation, back pain is tolerable no fever or chills Review of Systems All systems reviewed and was positive for what is mentioned in history of present illness otherwise negative Past Family Social History Allergies: Coded Allergies: No Known Allergies (Verified Adverse Reaction, Unknown, 05/02/17) Past Medical History As mentioned in history of present illness Past Surgical History As mentioned in history of present illness Family History Father has a history of cancer and throat cancer Social History Denied tobacco use, he drinks wine 5 days a week Physical Exam Vital Signs Vital Signs Date Time Temp Pulse Resp B/P (MAP) Pulse Ox O2 Delivery O2 Flow Rate FiO2 05/04/17 11:25 99.2 108 20 154/70 (98) 92 162/71 (101) 05/04/17 10:53 20 05/04/17 09:33 98.6 117 20 133/77 (95) 93 05/04/17 05:57 18 05/04/17 04:00 98.5 109 20 127/72 (90) 91 05/04/17 00:53 93 05/04/17 00:17 18 05/04/17 00:00 97.6 100 20 120/56 (77) 98 05/03/17 22:00 18 05/03/17 20:00 98.5 111 20 124/58 (80) 96 Physical Exam GENERAL: This is a well-nourished, well-developed patient, in no apparent distress. SKIN: No rashes, warm and dry HEAD: Atraumatic. Normocephalic. EYES: Pupils equal round and reactive. Extraocular motions intact. No scleral icterus. ENT: Nose without bleeding, or drainage, Airway patent. NECK: Trachea midline. Supple CARDIOVASCULAR: Regular rate and rhythm without murmurs, gallops, or rubs. RESPIRATORY: Fair air entry bilaterally. No wheezes, rales, or rhonchi. GASTROINTESTINAL: Abdomen soft, non-tender, nondistended. Positive bowel sounds MUSCULOSKELETAL: Extremities without clubbing, cyanosis, or edema. Pedal pulses appreciated NEUROLOGICAL: Awake and alert. Moves all extremity. Normal speech.no focal neurological deficit Result Diagram: 05/03/17 0415 05/03/17 0415 Imaging Last Impressions Lumbar Spine X-Ray 05/02/17 0000 Signed Impressions: Service Date/Time: Tuesday, May 02, 2017 09:25 - CONCLUSION: Fluoroscopic images during placement of screws and rods at L4-5. Intervertebral disc device also seen. Jamshid Frausto MD Assessment and Plan Assessment and Plan 67 y/o male s/p L4-L5 minimally invasive lumbar laminectomy, interbody arthrodesis using PEEK cage and autologous bone graft, L4-L5 instrumental fixation using transpedicular screws and rods, L4-L5 posterolateral fusion using autologous bone graft and demineralized bone matrix microsurgical dissection 05/02/17. cont current supportive care per neurosurgery Pains management INSIDE POLISHER SCDs and TEDs for dvt prophylaxis LSO brace Borderline diabetes mellitus>> hold Victoza, Accu-Chek with insulin sliding scale CHARLES versus CKD with history of kidney stones: Creatinine 1.75, monitor BMP Hypertension>> continue losartan hold hydrochlorothiazide perioperative DVT prophylaxis per neurosurgery Discussed Condition With Patient and neurosurgeon Rahul Castle MD May 04, 2017 18:46
--- NOTE | 2017-05-07 10:46 | HHI.DS ---
Discharge Summary Admission Date May 02, 2017 at 06:29 Discharge Date: May 04, 2017 Admitting Diagnosis s/p lumbar fusion (1) S/P lumbar fusion ICD Code: Z98.1 - Arthrodesis status Brief History Mr. Prince is a 67 year-old male who presented with intractable mechanical back pain and ary evidence of lower extremity L5 radiculopathy. He was found to have severe degenerative disk disease with loss of disk height and secondary stenosis. He failed maximum nonoperative treatment. A surgical decompression and arthrodhesis were indicated as a last resort. CBC/BMP: 05/03/17 0415 05/03/17 0415 Imaging Last Impressions Lumbar Spine X-Ray 05/02/17 0000 Signed Impressions: Service Date/Time: Sunday, May 02, 2017 09:25 - CONCLUSION: Fluoroscopic images during placement of screws and rods at L4-5. Intervertebral disc device also seen. Jamshid Frausto MD Hospital Course Mr. Prince underwent a L4-L5 minimally invasive lumbar laminectomy, interbody arthrodesis using PEEK cage and autologous bone graft, L4-L5 instrumental fixation using transpedicular screws and rods, L4-L5 posterolateral fusion using autologous bone graft and demineralized bone matrix, microsurgical dissection on May 02, 2017 for lumbar degenerative disk disease 05/03: Mr. Prince currently doing well, he had nausea earlier with vomiting. pain controlled on PROCESS SAFETY SPECIALIST. 2. He is feeling well. Ambulating with a walker, Pain is well controlled His PROCESS SAFETY SPECIALIST was dc'ed and he was discharged home in stable conditions. Pt Condition on Discharge: Stable Discharge Disposition: Discharge Home Discharge Instructions DIET: Follow Instructions for: As Tolerated, No Restrictions Speech Therapy-Diet Recommenda: Regular ACTIVITIES You can perform: Weight Bearing As Tanya Activities to Avoid: Lifting/Bending New Medications: Hydrocodone-Acetaminophen (Hydrocodone-Acetaminophen) 5-325 mg Tab 1 TAB PO Q8HR PRN for PAIN, #62 TAB 0 Refills Walker with Front Wheels (Walker with Front Wheels) 1 Mis Mis EA .XX DIRECTED PRN for ambulatio, #1 1 Refill Continued Medications: Cholecalciferol (Vitamin D-1000) 1,000 Unit Tab 1000 UNITS PO DAILY for Nutritional Supplement, #1 BOTTLE 0 Refills Hydrocodone-Acetaminophen (Vicodin) 5-300 Mg Tab 1 TAB PO Q4H PRN for PAIN, TAB 0 Refills Liraglutide Inj (Victoza Inj) 18 Mg/3 Ml Pen 1.2 MG SQ DAILY, PEN 0 Refills Losartan (Losartan) 25 Mg Tab 12.5 MG PO DAILY for Blood Pressure Management, #15 TAB 0 Refills Tizanidine (Zanaflex) 4 Mg Cap 4 MG PO TID PRN for MUSCLE SPASM, CAP 0 Refills [testosterone cream] () 1 APPLIC TOPICAL DAILY Henna Amaro May 07, 2017 10:46
== END 2017-05-04 13:50 | disposition home or self-care (01) | DRG 454 ==
LOC: HSDI 06:29 → N05B 17:23
PROVIDERS: ADMIT Neurological Surgery; ATTEND Neurological Surgery
PROC: 0SG0071 Fusion of Lumbar Vertebral Joint with Autologous Tissue Substitute, Posterior Approach, Posterior Column, Open Approach (ICD-10-PCS; 2017-05-02)
PROC: 0ST20ZZ Resection of Lumbar Vertebral Disc, Open Approach (ICD-10-PCS; 2017-05-02)
PROC: 0SG00AJ Fusion of Lumbar Vertebral Joint with Interbody Fusion Device, Posterior Approach, Anterior Column, Open Approach (ICD-10-PCS; principal; 2017-05-02 08:20)
DX: M51.16 Intervertebral disc disorders with radiculopathy, lumbar region (principal); N17.9 Acute kidney failure, unspecified; I12.9 Hypertensive chronic kidney disease with stage 1 through stage 4 chronic kidney disease, or unspecified chronic kidney disease; M43.16 Spondylolisthesis, lumbar region; R73.03 Prediabetes; Z87.442 Personal history of urinary calculi; N18.9 Chronic kidney disease, unspecified; Z80.2 Family history of malignant neoplasm of other respiratory and intrathoracic organs; R11.2 Nausea with vomiting, unspecified
CPT/HCPCS: 72100; 76000; 80048; 82948; 85025; 86850; 86900; 86901; 94150; 94640; 94664; C1713; C9113; J0690; J1170; J1580; J2250; J2270; J2405; J3010; J3370; J3480; J7030; J7120; J7611; J7613; L0484